=== PATIENT | female | born 1995 | race African-American/Black ===

== ENCOUNTER 2019-08-26 17:53 | Observation (INO) | payer MEDICAID ==
[~2019-08-26] VITALS: Ht 166.4 cm; Wt 78.9 kg
[2019-08-26] MEDS ORDERED: PREN1TAB78 PO (19:31)
[2019-08-26 20:23] LABS: CLARITY URINE CLEAR (CLEAR); COLOR URINE YELLOW (YELLOW); KETONES URINE NEGATIVE (NEGATIVE); LEUKOCYTE ESTERASE URINE 1+ (NEGATIVE); NITRITE URINE NEGATIVE (NEGATIVE); OCCULT BLOOD URINE NEGATIVE (NEGATIVE); PH URINE 7.5 (4.5-8.0); PROTEIN URINE NEGATIVE (NEGATIVE); SPECIFIC GRAVITY URINE 1.021 (1.005-1.030)
[2019-08-26] MEDS ORDERED: LACTATED RINGERS 1,000 ML IV SCH (21:15)
[2019-08-26] MEDS ORDERED: CEFAZOLIN 2,000 MG in DEXT 5% WATER 100 ML IV SCH (21:15)
== END 2019-08-26 22:19 | disposition home or self-care (01) ==
LOC: ER 17:53 → 8 EST LDRP 19:01
PROVIDERS: ADMIT Obstetrics & Gynecology; ATTEND Obstetrics & Gynecology
DX: O26.893 Other specified pregnancy related conditions, third trimester (principal); R10.9 Unspecified abdominal pain; Z3A.29 29 weeks gestation of pregnancy
CPT/HCPCS: 76805; 76818; 81003; 99281; G0378; J0690; J7060; 96360; 96361

== ENCOUNTER 2021-07-12 00:06 | Emergency (ER) | payer MEDICAID ==
[~2021-07-12] VITALS: Ht 170.2 cm; Wt 82.0 kg
[~2021-07-12 00:06] MED LIST: PREN1TAB78 PO
[2021-07-12] MEDS ORDERED: ALBUTEROL (0.083%) 2.5MG/3ML NEB HHN STA (00:47)
[2021-07-12 01:21] LABS: CHLORIDE 110 mEq/L (98-107)
[2021-07-12 01:24] LABS: BASOPHILS % 0.3 % (0.0-2.0); HEMATOCRIT. 32.3 % (36.0-48.0); HEMOGLOBIN. 10.5 g/dL (12.0-16.0); LYMPHOCYTES % 39.1 % (20.0-50.0); MEAN CORPUSCULAR HEMOGLOBIN 23.6 pg (28.0-32.0); MEAN CORPUSCULAR VOLUME 72.3 fL (81.0-99.0); MEAN PLATELET VOLUME 7.9 fl (7.4-10.4); MONOCYTES % 7.4 % (2.0-8.0); NEUTROPHILS % 50.2 % (40.0-76.0); PLATELET 239 x1000/uL (130-400); RED BLOOD CELL COUNT 4.46 mill/uL (4.2-5.4); RED CELL DISTRIBUTION WIDTH 13.9 % (11.6-14.6)
[2021-07-12 01:55] LABS: HCG SCREEN NEGATIVE
[2021-07-12] MEDS ORDERED: SODIUM CHLORIDE 0.9% 1,000 ML IV ONE (03:45)
[2021-07-12] MEDS ORDERED: ALBUTEROL (0.083%) 2.5MG/3ML NEB HHN NR (05:15)
[2021-07-12] MEDS ORDERED: IOHEXOL-350 100 ML BOTTLE ONE (07:01)
[2021-07-12 08:47] VITALS: BP 108/49
== END 2021-07-12 08:49 | disposition home or self-care (01) ==
LOC: ER 00:29
DX: R07.89 Other chest pain (principal); Z88.0 Allergy status to penicillin
CPT/HCPCS: 36415; 71045; 71275; 80053; 83880; 84484; 84703; 85025; 85379; 93005; 94640; 96360; 99285; Q9967; Z7610

== ENCOUNTER 2021-07-25 10:55 | Emergency (ER) | payer MEDICAID ==
[~2021-07-25] VITALS: Ht 170.2 cm; Wt 82.0 kg
[2021-07-25] MEDS ORDERED: KETOROLAC 30MG/ML VIAL IV ONE (13:45)
[2021-07-25] MEDS ORDERED: MORPHINE SULFATE 4 MG/ML CPJ (NOT FOR IM USE) IV ONE (13:45)
[2021-07-25] MEDS ORDERED: CYCL5TAB MT (16:06)
[2021-07-25] MEDS ORDERED: IBUP-2030 MT (16:06)
[2021-07-25 16:52] VITALS: BP 127/67
== END 2021-07-25 16:57 | disposition home or self-care (01) ==
LOC: ER 10:55
DX: M54.50 Low back pain, unspecified (principal); Z88.0 Allergy status to penicillin
CPT/HCPCS: 36415; 71045; 72100; 84484; 93005; 96374; 96375; 99285; J1885; J2270